=== PATIENT | male | born 2000 | race Caucasian/White ===

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

== ENCOUNTER 2021-03-04 13:01 | Emergency (ER) | payer SELFPAY ==
[~2021-03-04] VITALS: Ht 167 cm; Wt 72.5 kg
[~2021-03-04 13:01] MED LIST changes: +DOXY-227 PO; +NS (IVPB) 100 ML ONE; +NS (IVPB) 50 ML ONE; +TRANEXAMIC ACID 100 MG/ML 10 ML INJECTION ONE
[2021-03-04] MEDS ORDERED: NS (IVPB) 50 ML ONE (13:03)
[2021-03-04] MEDS ORDERED: TRANEXAMIC ACID 100 MG/ML 10 ML INJECTION ONE (13:03)
[2021-03-04] MEDS ORDERED: NS (IVPB) 250 ML ONE (13:05)
[2021-03-04] MEDS ORDERED: TRANEXAMIC ACID INJECTION 1,000 MG in NS (IVPB) 50 ML IV ONE (13:15)
[2021-03-04] MEDS ORDERED: HYDROmorphone 2 MG/ML VIAL (DILAUDID) ONE (13:15)
[2021-03-04 13:18] LABS: HEMOGLOBIN 14.4 g/dL (13.3-17.7); WHITE BLOOD COUNT 19.7 10^3/uL (4.3-11.0)
[2021-03-04 13:29] LABS: ALBUMIN 4.1 GM/DL (3.2-4.5); CHLORIDE 106 MMOL/L (98-107); POTASSIUM 3.6 MMOL/L (3.6-5.0); SODIUM 141 MMOL/L (135-145)
[2021-03-04 13:30] LABS: CALCIUM 8.4 MG/DL (8.5-10.1)
[2021-03-04] MEDS ORDERED: TRANEXAMIC ACID INJECTION 1,000 MG in NS (IVPB) 250 ML IV SCH (13:30)
[2021-03-04 13:31] LABS: GLUCOSE 125 MG/DL (70-105)
[2021-03-04 13:32] LABS: CARBON DIOXIDE 21 MMOL/L (21-32); TOTAL PROTEIN 6.9 GM/DL (6.4-8.2)
[2021-03-04 13:33] LABS: BILIRUBIN,TOTAL 1.3 MG/DL (0.1-1.0)
[2021-03-04 13:35] LABS: ALKALINE PHOSPHATASE 71 U/L (40-136); GFR ESTIMATED > 60; PHOSPHORUS 2.8 MG/DL (2.3-4.7)
[2021-03-04 13:36] LABS: BILIRUBIN,DIRECT 0.4 MG/DL (0.0-0.3); BILIRUBIN,INDIRECT 0.9 MG/DL; BUN/CREATININE RATIO 11
[2021-03-04 13:38] LABS: ALANINE AMINOTRANSFERASE 17 U/L (0-55)
[2021-03-04 13:45] VITALS: BP 141/100
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
[2021-03-04 14:17] LABS: FIBRIN DEGRADATION PRODUCTS 0.34 UG/ML (0.00-0.49); PROTHROMBIN TIME PATIENT 13.8 SEC (12.2-14.7)
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
== END 2021-03-04 13:45 ==
LOC: EDUNIT# 13:01 → ER 13:04
DX: S82.301A Unspecified fracture of lower end of right tibia, initial encounter for closed fracture (principal); F17.210 Nicotine dependence, cigarettes, uncomplicated; W34.00XA Accidental discharge from unspecified firearms or gun, initial encounter
CPT/HCPCS: 71045; 73590; 80048; 80076; 83605; 83735; 84100; 85027; 85379; 85384; 85610; 85730; 86850; 86900; 86901; 86920; 93041; 99291; G0390; G0480; 36415; 80320

== ENCOUNTER 2021-03-14 21:01 | Observation (INO) | payer SELFPAY ==
[~2021-03-14] VITALS: Ht 167 cm; Wt 72.5 kg
[~2021-03-14 21:01] MED LIST changes: -NS (IVPB) 100 ML ONE; -NS (IVPB) 50 ML ONE; -TRANEXAMIC ACID 100 MG/ML 10 ML INJECTION ONE
[2021-03-14] MEDS ORDERED: LACTATED RINGERS 1,000 ML IV ONE (21:30)
[2021-03-14] MEDS ORDERED: fentaNYL INJ 100 MCG/2 ML AMP IVP ONE (21:30)
[2021-03-14 21:33] LABS: BASOPHILS # (AUTO) 0.1 10^3/uL (0.0-0.1); BASOPHILS % (AUTO) 1 % (0-10); EOSINOPHILS # (AUTO) 0.3 10^3/uL (0.0-0.3); EOSINOPHILS % (AUTO) 2 % (0-10); HEMATOCRIT 25 % (40-54); HEMOGLOBIN 7.8 g/dL (13.3-17.7); LYMPHOCYTES # (AUTO) 2.1 10^3/uL (1.0-4.0); LYMPHOCYTES % (AUTO) 14 % (12-44); MEAN CORPUSCULAR HEMOGLOBIN 29 pg (25-34); MEAN CORPUSCULAR HGB CONC 31 g/dL (32-36); MEAN CORPUSCULAR VOLUME 92 fL (80-99); MEAN PLATELET VOLUME 8.8 fL (9.0-12.2); MONOCYTES # (AUTO) 0.9 10^3/uL (0.0-1.0); MONOCYTES % (AUTO) 6 % (0-12); NEUTROPHILS # (AUTO) 11.3 10^3/uL (1.8-7.8); NEUTROPHILS % (AUTO) 74 % (42-75); PLATELET COUNT 913 10^3/uL (130-400); WHITE BLOOD COUNT 15.4 10^3/uL (4.3-11.0)
--- NOTE | 2021-03-14 21:41 | Diagnostic Imaging Report ---
INDICATION: sepsis COMPARISON: 03/04/2021 FINDINGS: Single frontal view of the chest demonstrates normal heart size and pulmonary vascularity. The lungs show low inspiratory volumes, but are otherwise clear. No large pleural effusion or pneumothorax is seen. The visualized osseous structures show no acute abnormalities. IMPRESSION: 1. No acute cardiopulmonary process. Dictated by: Dictated on workstation # [id number]
[2021-03-14 21:47] LABS: ALBUMIN 3.1 GM/DL (3.2-4.5); CHLORIDE 100 MMOL/L (98-107); SODIUM 139 MMOL/L (135-145)
[2021-03-14 21:48] LABS: CALCIUM 8.5 MG/DL (8.5-10.1)
[2021-03-14 21:49] LABS: GLUCOSE 85 MG/DL (70-105); TOTAL PROTEIN 6.5 GM/DL (6.4-8.2)
[2021-03-14 21:50] LABS: CARBON DIOXIDE 27 MMOL/L (21-32)
[2021-03-14 21:51] LABS: BILIRUBIN,TOTAL 0.4 MG/DL (0.1-1.0)
[2021-03-14 21:53] LABS: ALKALINE PHOSPHATASE 102 U/L (40-136); CREATININE SERUM 0.71 MG/DL (0.60-1.30); GFR ESTIMATED > 60
[2021-03-14 21:54] LABS: BAND NEUTROPHILS 1 %; BUN/CREATININE RATIO 15; EOSINOPHILS % (MANUAL) 3 %; HYPOCHROMASIA SLIGHT; LYMPHOCYTES % (MANUAL) 13 %; MONOCYTES % (MANUAL) 4 %; NEUTROPHILS % (MANUAL) 79 %
[2021-03-14 21:55] LABS: INR 0.9 (0.8-1.4); PROTHROMBIN TIME PATIENT 12.6 SEC (12.2-14.7)
[2021-03-14 21:56] LABS: ALANINE AMINOTRANSFERASE 52 U/L (0-55)
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
[2021-03-14] MEDS ORDERED: IOHEXOL 350 MG/ML 100 ML (OMNIPAQUE 350) VIAL IV ONE (22:15)
[2021-03-14] MEDS ORDERED: NS 100 ML (IVPB) BAG IV ONE (22:15)
[2021-03-14] MEDS ORDERED: HOLD METFORMIN - RECEIVED CONTRAST 20 ML VIAL IV SCH (22:15)
[2021-03-14 22:52] LABS: BILIRUBIN,URINE NEGATIVE (NEGATIVE); CLARITY,URINE CLEAR; COLOR,URINE YELLOW; GLUCOSE, URINE (UA) NEGATIVE (NEGATIVE); KETONES,URINE NEGATIVE (NEGATIVE); LEUKOCYTE ESTERASE ,URINE NEGATIVE (NEGATIVE); NITRITE,URINE NEGATIVE (NEGATIVE); PROTEIN,URINE NEGATIVE (NEGATIVE)
[2021-03-14 23:00] LABS: AMORPHOUS SEDIMENT,UR LARGE AMOR PHOSPHATE /LPF; BACTERIA,URINE NEGATIVE /HPF
[2021-03-14 23:04] LABS: AMPHETAMINE SCREEN, URINE NEGATIVE (NEGATIVE); BARBITURATE SCREEN URINE NEGATIVE (NEGATIVE); BENZODIAZEPINES SCREEN URINE NEGATIVE (NEGATIVE); CANNABINOID SCREEN, URINE POSITIVE (NEGATIVE); COCAINE SCREEN URINE NEGATIVE (NEGATIVE); METHADONE STAT NEGATIVE (NEGATIVE); METHAMPHETAMINE SCREEN URINE S NEGATIVE (NEGATIVE); OPIATE SCREEN URINE POSITIVE (NEGATIVE); OXYCODONE STAT NEGATIVE (NEGATIVE); PROPOXYPHENE STAT NEGATIVE (NEGATIVE); TRICYCLIC ANTIDEPRESSANTS SCRE NEGATIVE (NEGATIVE)
[2021-03-15] MEDS ORDERED: LORazepam INJ 2 MG/ML (ATIVAN) VIAL IVP ONE ×2 (00:45→01:45)
[2021-03-15] MEDS ORDERED: fentaNYL INJ 100 MCG/2 ML AMP IVP ONE (00:45)
[2021-03-15 01:15] VITALS: BP 133/80
[2021-03-15] MEDS ORDERED: LACTATED RINGERS 1,000 ML IV ONE (01:25)
[2021-03-15] MEDS ORDERED: LORazepam INJ 2 MG/ML (ATIVAN) VIAL IVP PRN (01:45)
[2021-03-15] MEDS ORDERED: LACTATED RINGERS 1,000 ML IV SCH (01:45)
[2021-03-15] MEDS ORDERED: oxyCODONE/APAP 5/325MG (PERCOCET 5) TABLET PO PRN (01:45)
[2021-03-15] MEDS ORDERED: ONDANSETRON 4 MG/2 ML (SDV) Z0FRAN IV PRN (01:45)
[2021-03-15] MEDS ORDERED: fentaNYL INJ 100 MCG/2 ML AMP IV PRN (02:00)
[2021-03-15] MEDS ORDERED: OLANZapine 5 MG (ZyPREXA) TAB PO ONE (02:00)
--- NOTE | 2021-03-15 06:15 | Diagnostic Imaging Report ---
CTA chest, abdomen and pelvis Thin axial sections through the chest, abdomen and pelvis are obtained following intravenous contrast bolus. Multiplanar MIP images were reconstructed and reviewed. All CT scans use one or more of the following dose optimizing techniques: automated exposure control, MA and/or KvP adjustment based on patient size and exam type or iterative reconstruction. INDICATION: Tachycardia, shortness of air, abdominal pain, recent leg surgery. No relevant comparisons. CHEST: There are no intraluminal pulmonary arterial filling defects. There are no findings of pulmonary arterial embolus. No airspace consolidation. No suspicious groundglass opacity. No septal thickening. The lungs are clear. No lung mass or adenopathy. The aorta is patent and nonaneurysmal. No acute chest wall pathology. No lymphadenopathy. No effusion. Abdomen and pelvis: Gallbladder contracted. The liver and bile ducts unremarkable. The spleen is negative. The adrenals and pancreas unremarkable. Kidneys unobstructed. There is an elevated fecal load raising the question of mild constipation but no focal impaction or obstruction. There is no perienteric or pericolonic edema. Air-containing viscus believed to be the appendix is visualized in the right lower quadrant and unremarkable. No focal inflammatory changes, ascites, abscess, hematoma or acute fluid collection. The urinary bladder unremarkable. The bony structures nonacute. IMPRESSION: CHEST: Negative for PE or other acute abnormalities. Abdomen/pelvis: No obstructive features, inflammatory process or acute abnormalities. Possible constipation noted. Dictated by: Dictated on workstation # [id number]
[2021-03-15] MEDS ORDERED: DOCUSATE SODIUM 100 MG (COLACE) CAP PO SCH (09:00)
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
== END 2021-03-15 02:10 | disposition left against medical advice (07) ==
LOC: EDUNIT# 21:03 → ER 21:04 → ICU 21:05 → UNDOADMOB 03-15 00:49 → UNDODISOB 03-15 02:10
PROVIDERS: ADMIT Family Medicine; ATTEND Family Medicine
DX: S81.831D Puncture wound without foreign body, right lower leg, subsequent encounter (principal); G89.18 Other acute postprocedural pain; R41.82 Altered mental status, unspecified; R00.0 Tachycardia, unspecified; K59.00 Constipation, unspecified; F41.9 Anxiety disorder, unspecified; D72.829 Elevated white blood cell count, unspecified; R79.82 Elevated C-reactive protein (CRP); R79.89 Other specified abnormal findings of blood chemistry; F17.210 Nicotine dependence, cigarettes, uncomplicated; W34.00XD Accidental discharge from unspecified firearms or gun, subsequent encounter
CPT/HCPCS: 71045; 71275; 74177; 80053; 80306; 81000; 83605; 83690; 84145; 85007; 85027; 85610; 85730; 86141; 87040; 87088; 87636; 93005; 96361; 96374; 96375; 96376; 99284; G0378; G0480; 36415; 80320

== ENCOUNTER 2021-03-15 10:17 | Emergency (ER) | payer SELFPAY ==
[~2021-03-15] VITALS: Ht 180 cm; Wt 72.5 kg
[2021-03-15] MEDS ORDERED: fentaNYL INJ 100 MCG/2 ML AMP ONE (10:27)
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
[2021-03-15] MEDS ORDERED: fentaNYL INJ 100 MCG/2 ML AMP IVP ONE (10:45)
[2021-03-15] MEDS ORDERED: LACTATED RINGERS 1,000 ML IV ONE (10:45)
[2021-03-15] MEDS ORDERED: VANCOMYCIN INJECTION 1,500 MG in NS IV 500 ML 500 ML IV ONE (10:45)
[2021-03-15] MEDS ORDERED: PIPERACILLIN SODIUM/TAZOBACTAM 4.5 GM in NS (IVPB) 100 ML IV ONE (10:45)
[2021-03-15] MEDS ORDERED: NS IV 500 ML 500 ML IV ONE (10:45)
[2021-03-15 10:49] LABS: BASOPHILS # (AUTO) 0.1 10^3/uL (0.0-0.1); BASOPHILS % (AUTO) 1 % (0-10); EOSINOPHILS # (AUTO) 0.1 10^3/uL (0.0-0.3); EOSINOPHILS % (AUTO) 1 % (0-10); HEMATOCRIT 23 % (40-54); HEMOGLOBIN 7.1 g/dL (13.3-17.7); LYMPHOCYTES # (AUTO) 2.2 10^3/uL (1.0-4.0); LYMPHOCYTES % (AUTO) 12 % (12-44); MEAN CORPUSCULAR HEMOGLOBIN 29 pg (25-34); MEAN CORPUSCULAR HGB CONC 31 g/dL (32-36); MEAN CORPUSCULAR VOLUME 93 fL (80-99); MEAN PLATELET VOLUME 8.6 fL (9.0-12.2); MONOCYTES # (AUTO) 0.9 10^3/uL (0.0-1.0); MONOCYTES % (AUTO) 5 % (0-12); NEUTROPHILS # (AUTO) 13.8 10^3/uL (1.8-7.8); NEUTROPHILS % (AUTO) 77 % (42-75); PLATELET COUNT 806 10^3/uL (130-400); WHITE BLOOD COUNT 17.9 10^3/uL (4.3-11.0)
[2021-03-15 10:53] LABS: ALBUMIN 3.1 GM/DL (3.2-4.5); CHLORIDE 103 MMOL/L (98-107); POTASSIUM 3.9 MMOL/L (3.6-5.0); SODIUM 140 MMOL/L (135-145)
[2021-03-15 10:55] LABS: CALCIUM 8.7 MG/DL (8.5-10.1)
[2021-03-15 10:56] LABS: GLUCOSE 95 MG/DL (70-105); PROTHROMBIN TIME PATIENT 13.1 SEC (12.2-14.7); TOTAL PROTEIN 6.4 GM/DL (6.4-8.2)
[2021-03-15 10:57] LABS: BILIRUBIN,TOTAL 0.4 MG/DL (0.1-1.0); CARBON DIOXIDE 26 MMOL/L (21-32)
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
[2021-03-15 10:59] LABS: ALKALINE PHOSPHATASE 95 U/L (40-136); CREATININE SERUM 0.69 MG/DL (0.60-1.30); GFR ESTIMATED > 60
[2021-03-15 11:00] LABS: BUN/CREATININE RATIO 19
[2021-03-15 11:02] LABS: ALANINE AMINOTRANSFERASE 45 U/L (0-55)
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
[2021-03-15 11:06] LABS: BILIRUBIN,URINE NEGATIVE (NEGATIVE); CLARITY,URINE CLEAR; COLOR,URINE YELLOW; GLUCOSE, URINE (UA) NEGATIVE (NEGATIVE); KETONES,URINE NEGATIVE (NEGATIVE); LEUKOCYTE ESTERASE ,URINE NEGATIVE (NEGATIVE); NITRITE,URINE NEGATIVE (NEGATIVE); PH,URINE 7.5 (5-9); PROTEIN,URINE NEGATIVE (NEGATIVE)
[2021-03-15 11:11] LABS: ANISOCYTOSIS MODERATE; BAND NEUTROPHILS 4 %; HYPOCHROMASIA SLIGHT; LYMPHOCYTES % (MANUAL) 11 %; MONOCYTES % (MANUAL) 4 %; NEUTROPHILS % (MANUAL) 80 %; NUCLEATED RED BLOOD CELLS 1; POLYCHROMASIA SLIGHT; REACTIVE LYMPHOCYTES 1 %
[2021-03-15 11:26] LABS: AMPHETAMINE SCREEN, URINE NEGATIVE (NEGATIVE); BARBITURATE SCREEN URINE NEGATIVE (NEGATIVE); BENZODIAZEPINES SCREEN URINE POSITIVE (NEGATIVE); CANNABINOID SCREEN, URINE POSITIVE (NEGATIVE); COCAINE SCREEN URINE NEGATIVE (NEGATIVE); METHADONE STAT NEGATIVE (NEGATIVE); METHAMPHETAMINE SCREEN URINE S NEGATIVE (NEGATIVE); OPIATE SCREEN URINE POSITIVE (NEGATIVE); OXYCODONE STAT NEGATIVE (NEGATIVE); PROPOXYPHENE STAT NEGATIVE (NEGATIVE); TRICYCLIC ANTIDEPRESSANTS SCRE NEGATIVE (NEGATIVE)
[2021-03-15] MEDS ORDERED: ORPHENADRINE 60 MG/2 ML (NORFLEX) AMP (ED ONLY) IM ONE (11:30)
[2021-03-15 11:33] LABS: AMORPHOUS SEDIMENT,UR FEW AMOR URATES /LPF; BACTERIA,URINE NEGATIVE /HPF; WBC,URINE RARE /HPF
[2021-03-15] MEDS ORDERED: morphine INJ 10 MG/ML 1ML (SYR OR VIAL) IVP STA ×4 (12:10→18:27)
[2021-03-15] MEDS ORDERED: ONDANSETRON 4 MG/2 ML (SDV) Z0FRAN IVP ONE (12:15)
[2021-03-15] MEDS ORDERED: NICOTINE 2 MG GUM (NICORETTE) PO PRN (13:00)
[2021-03-15] MEDS ORDERED: NICOTINE 21 MG (NICODERM) PATCH TD ONE (13:00)
[2021-03-15] MEDS ORDERED: NS IV 500 ML 500 ML ONE (13:52)
[2021-03-15] MEDS ORDERED: IBUPROFEN 800 MG (MOTRIN) TAB PO ONE (16:45)
[2021-03-15] MEDS ORDERED: CYCLOBENZAPRINE 10 MG (FLEXERIL) TAB PO ONE (17:00)
[2021-03-15] MEDS ORDERED: morphine INJ 10 MG/ML 1ML (SYR OR VIAL) ONE (18:21)
[2021-03-15 18:38] VITALS: BP 143/90
== END 2021-03-15 18:38 | disposition short-term general hospital (02) ==
LOC: EDUNIT# 10:17 → ER 10:18
DX: S81.831A Puncture wound without foreign body, right lower leg, initial encounter (principal); A41.9 Sepsis, unspecified organism; R41.0 Disorientation, unspecified; D50.0 Iron deficiency anemia secondary to blood loss (chronic); F17.210 Nicotine dependence, cigarettes, uncomplicated; W34.00XA Accidental discharge from unspecified firearms or gun, initial encounter
CPT/HCPCS: 71045; 73590; 80053; 80306; 81000; 83605; 85007; 85027; 85610; 85730; 86850; 86900; 86901; 87040; 87088; 99284; A6223; 36415

== ENCOUNTER 2021-09-29 12:21 | Emergency (ER) | payer SELFPAY ==
[~2021-09-29] VITALS: Ht 180.3 cm; Wt 70.3 kg
[2021-09-29] MEDS ORDERED: RT-ALBUTEROL/IPRATROPIUM 3 ML (DUONEB) VIAL INH ONE (12:30)
[2021-09-29] MEDS ORDERED: PRD20T PO (12:30)
[2021-09-29] MEDS ORDERED: diphenhydrAMINE 50 MG/ML INJ (BENADRYL) IVP ONE (12:30)
[2021-09-29] MEDS ORDERED: EPIN0.3P3 IJ (12:30)
[2021-09-29] MEDS ORDERED: EPINEPHrine INJECTION 1 MG/ML AMP IM ONE (12:30)
[2021-09-29] MEDS ORDERED: FAMOTIDINE 20MG/2ML IV (PEPCID) IVP ONE (12:30)
[2021-09-29] MEDS ORDERED: methylPREDNISolone 125 MG (Solu-MEDROL) VIAL IVP ONE (12:30)
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
[2021-09-29 13:17] VITALS: BP 120/84
== END 2021-09-29 13:16 | disposition home or self-care (01) ==
LOC: EDUNIT# 12:21 → ER 12:22
DX: T78.2XXA Anaphylactic shock, unspecified, initial encounter (principal); F15.90 Other stimulant use, unspecified, uncomplicated; R00.0 Tachycardia, unspecified; I10 Essential (primary) hypertension

== ENCOUNTER 2022-01-14 02:16 | Emergency (ER) | payer SELFPAY ==
[~2022-01-14] VITALS: Ht 180.3 cm; Wt 79.4 kg
[~2022-01-14 02:16] MED LIST changes: +EPIN0.3P3 IJ; +PRD20T PO
[2022-01-14 02:43] LABS: BASOPHILS % (AUTO) 1 % (0-10); EOSINOPHILS % (AUTO) 0 % (0-10); HEMATOCRIT 41 % (40-54); HEMOGLOBIN 13.6 g/dL (13.3-17.7); LYMPHOCYTES # (AUTO) 1.3 10^3/uL (1.0-4.0); LYMPHOCYTES % (AUTO) 18 % (12-44); MEAN CORPUSCULAR HEMOGLOBIN 31 pg (25-34); MEAN CORPUSCULAR HGB CONC 33 g/dL (32-36); MEAN CORPUSCULAR VOLUME 93 fL (80-99); MEAN PLATELET VOLUME 9.9 fL (9.0-12.2); MONOCYTES # (AUTO) 0.6 10^3/uL (0.0-1.0); MONOCYTES % (AUTO) 8 % (0-12); NEUTROPHILS # (AUTO) 5.3 10^3/uL (1.8-7.8); NEUTROPHILS % (AUTO) 72 % (42-75); PLATELET COUNT 254 10^3/uL (130-400); WHITE BLOOD COUNT 7.3 10^3/uL (4.3-11.0)
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
[2022-01-14 02:47] LABS: CHLORIDE 101 MMOL/L (98-107); POTASSIUM 3.3 MMOL/L (3.6-5.0); SODIUM 137 MMOL/L (135-145)
[2022-01-14 02:48] LABS: ALBUMIN 3.8 GM/DL (3.2-4.5)
[2022-01-14 02:49] LABS: CALCIUM 8.5 MG/DL (8.5-10.1)
[2022-01-14 02:50] LABS: GLUCOSE 297 MG/DL (70-105); TOTAL PROTEIN 6.5 GM/DL (6.4-8.2)
[2022-01-14 02:51] LABS: CARBON DIOXIDE 20 MMOL/L (21-32)
[2022-01-14 02:52] LABS: BILIRUBIN,TOTAL 0.9 MG/DL (0.1-1.0)
[2022-01-14 02:54] LABS: ALKALINE PHOSPHATASE 74 U/L (40-136); CREATININE SERUM 1.36 MG/DL (0.60-1.30); GFR ESTIMATED 75
[2022-01-14 02:55] LABS: BUN/CREATININE RATIO 6
[2022-01-14 02:56] LABS: SALICYLATE < 5.0 MG/DL (5.0-20.0)
[2022-01-14 02:57] LABS: ALANINE AMINOTRANSFERASE 72 U/L (0-55)
[2022-01-14 03:04] LABS: ACETAMINOPHEN < 10 UG/ML (10-30)
[2022-01-14 03:30] LABS: AMPHETAMINE SCREEN, URINE POSITIVE (NEGATIVE); BARBITURATE SCREEN URINE NEGATIVE (NEGATIVE); BENZODIAZEPINES SCREEN URINE NEGATIVE (NEGATIVE); CANNABINOID SCREEN, URINE POSITIVE (NEGATIVE); COCAINE SCREEN URINE NEGATIVE (NEGATIVE); METHADONE STAT NEGATIVE (NEGATIVE); METHAMPHETAMINE SCREEN URINE S POSITIVE (NEGATIVE); OPIATE SCREEN URINE NEGATIVE (NEGATIVE); OXYCODONE STAT NEGATIVE (NEGATIVE); PROPOXYPHENE STAT NEGATIVE (NEGATIVE); TRICYCLIC ANTIDEPRESSANTS SCRE NEGATIVE (NEGATIVE)
[2022-01-14] MEDS ORDERED: LACTATED RINGERS 1,000 ML IV STA (03:36)
[2022-01-14] MEDS ORDERED: KETOROLAC 30 MG/ML VIAL IVP STA (04:55)
[2022-01-14 05:35] VITALS: BP 104/61
--- NOTE | 2022-01-14 05:55 | Diagnostic Imaging Report ---
INDICATION: Chest pain. COMPARISON: 03/15/2021. FINDINGS: Single view of the chest demonstrates clear lungs bilaterally. The heart is normal. There is no pneumothorax but osseous structures normal. IMPRESSION: Negative chest. Dictated by: Dictated on workstation # [id number]
== END 2022-01-14 05:39 | disposition home or self-care (01) ==
LOC: EDUNIT# 02:16 → ER 02:17
DX: S09.90XA Unspecified injury of head, initial encounter (principal); T40.411A Poisoning by fentanyl or fentanyl analogs, accidental (unintentional), initial encounter; F15.10 Other stimulant abuse, uncomplicated; R09.2 Respiratory arrest; R00.0 Tachycardia, unspecified; Z72.0 Tobacco use; X58.XXXA Exposure to other specified factors, initial encounter
CPT/HCPCS: 71045; 80053; 80306; 83735; 84484; 85025; 93005; 93041; 99284; G0480 ×3; 36415; 80320; 80329

== ENCOUNTER 2022-01-25 06:10 | Emergency (ER) | payer SELFPAY ==
[~2022-01-25] VITALS: Ht 180 cm; Wt 74.8 kg
[2022-01-25] MEDS ORDERED: NS IV 1000 ML 1,000 ML IV SCH (06:30)
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
[2022-01-25 06:33] LABS: BASOPHILS # (AUTO) 0.1 10^3/uL (0.0-0.1); BASOPHILS % (AUTO) 0 % (0-10); EOSINOPHILS # (AUTO) 0.3 10^3/uL (0.0-0.3); EOSINOPHILS % (AUTO) 2 % (0-10); HEMATOCRIT 45 % (40-54); HEMOGLOBIN 14.6 g/dL (13.3-17.7); LYMPHOCYTES # (AUTO) 4.5 10^3/uL (1.0-4.0); LYMPHOCYTES % (AUTO) 30 % (12-44); MEAN CORPUSCULAR HEMOGLOBIN 31 pg (25-34); MEAN CORPUSCULAR HGB CONC 33 g/dL (32-36); MEAN CORPUSCULAR VOLUME 95 fL (80-99); MEAN PLATELET VOLUME 9.3 fL (9.0-12.2); MONOCYTES # (AUTO) 0.7 10^3/uL (0.0-1.0); MONOCYTES % (AUTO) 5 % (0-12); NEUTROPHILS # (AUTO) 9.1 10^3/uL (1.8-7.8); NEUTROPHILS % (AUTO) 62 % (42-75); PLATELET COUNT 486 10^3/uL (130-400); WHITE BLOOD COUNT 14.7 10^3/uL (4.3-11.0)
[2022-01-25 06:38] LABS: CHLORIDE 103 MMOL/L (98-107); POTASSIUM 3.4 MMOL/L (3.6-5.0); SODIUM 140 MMOL/L (135-145)
[2022-01-25 06:39] LABS: CALCIUM 9.3 MG/DL (8.5-10.1)
[2022-01-25 06:40] LABS: GLUCOSE 309 MG/DL (70-105)
[2022-01-25 06:41] LABS: CARBON DIOXIDE 21 MMOL/L (21-32); TOTAL PROTEIN 7.2 GM/DL (6.4-8.2)
[2022-01-25 06:42] LABS: BILIRUBIN,TOTAL 0.7 MG/DL (0.1-1.0)
[2022-01-25 06:44] LABS: ALKALINE PHOSPHATASE 86 U/L (40-136); CREATININE SERUM 1.18 MG/DL (0.60-1.30); GFR ESTIMATED 89
[2022-01-25 06:45] LABS: BUN/CREATININE RATIO 10
[2022-01-25 06:46] LABS: ACETAMINOPHEN < 10 UG/ML (10-30)
[2022-01-25 06:47] LABS: ALANINE AMINOTRANSFERASE 19 U/L (0-55); SALICYLATE < 5.0 MG/DL (5.0-20.0)
[2022-01-25 07:06] LABS: BAND NEUTROPHILS 0 %; BASOPHILS % (MANUAL) 0 %; EOSINOPHILS % (MANUAL) 4 %; LYMPHOCYTES % (MANUAL) 17 %; MONOCYTES % (MANUAL) 6 %; NEUTROPHILS % (MANUAL) 65 %; RBC MORPH NORMAL; REACTIVE LYMPHOCYTES 8 %
--- NOTE | 2022-01-25 07:29 | Diagnostic Imaging Report ---
INDICATION: Chest pain. EXAMINATION: Chest 01/25/2022 COMPARISON: 01/14/2022 FINDINGS: The cardiomediastinal silhouette is unremarkable. The pulmonary vasculature is within normal limits. The lungs and pleural spaces are clear. IMPRESSION: No evidence of an acute cardiopulmonary process. Dictated by: Dictated on workstation # [id number]
[2022-01-25 10:16] VITALS: BP 117/77
== END 2022-01-25 10:16 | disposition home or self-care (01) ==
LOC: EDUNIT# 06:10 → ER 06:12
DX: T40.411A Poisoning by fentanyl or fentanyl analogs, accidental (unintentional), initial encounter (principal); R00.0 Tachycardia, unspecified; I45.19 Other right bundle-branch block
CPT/HCPCS: 71045; 80053; 84484; 85007; 85027; 93005; 93041; 99284; G0480 ×3; 36415; 80320; 80329